=== PATIENT | male | born 1945 | race Caucasian/White ===

== ENCOUNTER → 2017-07-25 | Outpatient (REF) ==
[~2017-07-25] MED LIST: AMOXICILLIN 50500 MG PO; ASPIRIN 32325 MG/TAB PO; BIAXIN 500MG T500 MG PO; FLEXERIL 1010 MG/TAB PO; FOLIC ACID 40400 MCG PO; FORTAMET1000 MG PO; GLIPIZIDE10 MG PO; GLUCOTROL5 MG PO; IRON325 M1 PO; LEVEMIR100 U/ML SC; MULTIVITAMIN1 CTB PO; MVI PO; NIFEREX-150 501 CA1 PO; NITROSTAT0.4 MG/TAB SL; NORCO 325 MG-51 TAB PO; PLAVIX 75MG TAB75 MG PO; PRILOSEC 20MG20 MG PO; REGLAN 10MG10 MG/TAB PO; SLOW FE45 MG PO; TOPROL XL 25MG25 MG PO; VITAMIN C500 MG PO; ZESTRIL5 MG PO; ZOCOR40 MG PO; [UNRECOGNIZED DRUG - OTHER] PO
[2017-07-25 10:52] LABS: ALBUMIN 2.6 gm/dL (3.5-5.0); CALCIUM 8.4 mg/dL (8.4-10.2); CREATININE, serum 1.35 mg/dL (0.66-1.25); POTASSIUM 3.6 mmol/L (3.4-5.0); TOTAL PROTEIN 5.5 gm/dL (6.4-8.2)
[2017-07-25 10:58] LABS: HEMATOCRIT 37.9 % (42.0-52.0); HEMOGLOBIN 14.5 g/dl (13.5-18.0); MEAN CELL VOLUME 84 fl (80.0-100.0); MEAN CORPUSCULAR HEMOGLOBIN 32 pg (27.0-31.0); MEAN CORPUSCULAR HGB CONC 38 g/dl (33.0-37.0); MEAN PLATELET VOLUME 11.8 fl (7.4-10.4); PLATELET COUNT 166 K/mm3 (130-400); REDCELL DISTRIBUTION WIDTH-CV 12.5 % (11.5-14.5)
[2017-07-25 11:59] LABS: BAND 19 % (0-10); EOSINOPHIL 1 % (0-4); LYMPHOCYTE 17 % (20.0-51.0); MYELOCYTE 3 % (0-0); NEUTROPHILS 56 % (42.0-75.2); PLATELET ESTIMATE NORMAL (NORMAL); TARGET CELLS 2+
[2017-07-28 08:45] LABS: PATHOLOGY DIFF REVIEW OK +
== END ==
LOC: ZCOL.LAB 10:40
PROVIDERS: Internal Medicine
DX: J18.1 Lobar pneumonia, unspecified organism (principal)

== ENCOUNTER 2017-08-04 17:14 | Inpatient (IN) | payer BC ==
[~2017-08-04] VITALS: Ht 177.8 cm; Wt 70.7 kg
[~2017-08-04 17:14] MED LIST changes: -ALMACONE 360 M360 ML PO; -ATROVENT INHALE14 GM IH; -DULCOLAX S10 MG/SUPP RC; -FERROUS SU325 MG/TAB PO; -IMODIUM 2MG CAPS2 MG PO; -LEVAQUIN 750MG750 M1 PO; -MILK OF MA400 MG/52 PO; -NOVOLOG FLEX100 U/ML SQ; -TYLENOL 325MG325 MG PO; -ZOSYN 4 GM-0.51 PD1 IV
[2017-08-04 17:28] VITALS: BP 140/57; PULSE 87; TEMP 98.2
[2017-08-04] MEDS ORDERED: FERROUS SU325 MG/TAB PO (17:32)
[2017-08-04] MEDS ORDERED: LEVAQUIN 750MG750 M1 PO (17:35)
[2017-08-04] MEDS ORDERED: ATROVENT INHALE14 GM IH (17:38)
[2017-08-04] MEDS ORDERED: NOVOLOG FLEX100 U/ML SQ ×2 (17:39→17:42)
[2017-08-04 20:03] VITALS: BP 121/51; PULSE 96; TEMP 101.1
[2017-08-04 23:40] VITALS: BP 133/52; PULSE 93; TEMP 99.4
[2017-08-05 04:35] VITALS: BP 117/51; PULSE 90; TEMP 98.9
[2017-08-05 07:00] LABS: CALCIUM 8.3 mg/dL (8.4-10.2); CREATININE, serum 1.41 mg/dL (0.66-1.25); POTASSIUM 4.1 mmol/L (3.4-5.0)
[2017-08-05 07:15] LABS: TROPONIN-I 0.284 ng/mL (0.000-0.034)
[2017-08-05 07:30] LABS: BASO # 0.1 (0.0-0.2); BASO % 0.4 % (0.0-2.0); EOS % 0.1 % (0-4.0); GRAN # 11.6 (1.4-6.5); GRAN % 85.3 % (42.2-75.2); LYMPH % 7.2 % (20.0-51.0); MEAN CELL VOLUME 90 fl (80.0-100.0); MEAN CORPUSCULAR HGB CONC 36 g/dl (33.0-37.0); MONO # 0.8 (0.1-0.6); MONO % 6.1 % (1.7-9.3); RED BLOOD COUNT 2.93 M/mm3 (4.20-5.60); REDCELL DISTRIBUTION WIDTH-CV 14.6 % (11.5-14.5)
[2017-08-05 07:31] LABS: HEMATOCRIT 26.5 % (42.0-52.0); HEMOGLOBIN 9.4 g/dl (13.5-18.0); MEAN CORPUSCULAR HEMOGLOBIN 32 pg (27.0-31.0); PLATELET COUNT 425 K/mm3 (130-400)
[2017-08-05 07:32] VITALS: BP 135/57; PULSE 98; TEMP 98.1
[2017-08-05 09:39] LABS: COLLECTION METHOD CLEAN CATCH
[2017-08-05 10:12] LABS: URINE APPEARANCE Clear; URINE COLOR Yellow
[2017-08-05 10:13] LABS: PH 5 (5-8); SQUAMOUS EPITHELIAL 0-2 /hpf; URINE BILIRUBIN Negative (NEGATIVE); URINE BLOOD Negative (NEGATIVE); URINE GLUCOSE 1+ (NEGATIVE); URINE KETONE Negative (NEGATIVE); URINE LEUKOCYTE ESTERASE Negative (NEGATIVE); URINE NITRATE Negative (NEGATIVE); URINE PROTEIN(semi-quant) Negative (NEGATIVE); URINE RBC 0-2 /hpf; URINE UROBILINOGEN Negative (NEGATIVE)
[2017-08-05 10:14] LABS: URINE BACTERIA None Seen /hpf
[2017-08-05 11:11] VITALS: BP 106/51; PULSE 102; TEMP 99
[2017-08-05 11:31] LABS: INR 1.2 (0.8-3.0); PROTHROMBIN TIME 13.7 SECONDS (9.7-12.8)
[2017-08-05 14:26] LABS: GLUCOSE,PLEURAL FLUID 364 mg/dL; TOTAL PROTEIN,PLEURAL FLUID 3.2 gm/dL
[2017-08-05 14:39] LABS: PLEURAL FLUID RBC 5000 /mm3 (0-0); PLEURAL FLUID WBC 18131 /mm3
[2017-08-05 14:56] LABS: PLEURAL FLUID APPEARANCE HAZY; PLEURAL FLUID COLOR YELLOW
[2017-08-05 16:47] VITALS: BP 118/57; PULSE 95; TEMP 98.4
[2017-08-05 19:45] VITALS: BP 126/66; PULSE 97; TEMP 98.4
[2017-08-06] VITALS (368 sets, daily range): BP systolic 96–167; BP diastolic 44–70; PULSE 96–128; TEMP 97.5–100.3; O2SAT 94–100
[2017-08-06 07:00] LABS: MEAN CELL VOLUME 90 fl (80.0-100.0); MEAN CORPUSCULAR HGB CONC 35 g/dl (33.0-37.0); PLATELET COUNT 445 K/mm3 (130-400); RED BLOOD COUNT 2.64 M/mm3 (4.20-5.60); REDCELL DISTRIBUTION WIDTH-CV 14.5 % (11.5-14.5)
[2017-08-06 07:03] LABS: HEMATOCRIT 23.8 % (42.0-52.0); HEMOGLOBIN 8.3 g/dl (13.5-18.0); MEAN CORPUSCULAR HEMOGLOBIN 31 pg (27.0-31.0)
[2017-08-06 07:04] LABS: CALCIUM 8.3 mg/dL (8.4-10.2); CREATININE, serum 1.38 mg/dL (0.66-1.25); POTASSIUM 3.6 mmol/L (3.4-5.0)
[2017-08-06 07:25] LABS: TROPONIN-I 0.166 ng/mL (0.000-0.034)
[2017-08-06 07:53] LABS: BAND 15 % (0-10); EOSINOPHIL 1 % (0-4); LYMPHOCYTE 7 % (20.0-51.0); NEUTROPHILS 76 % (42.0-75.2)
[2017-08-06 07:54] LABS: PLATELET ESTIMATE INCREASED (NORMAL)
[2017-08-06 14:07] LABS: ARTERIAL BLOOD GAS BASE EXCESS -2.4 (-2-2); ARTERIAL BLOOD GAS HCO3 22.7 meq/L (22-26); ARTERIAL BLOOD GAS PCO2 40.7 mmHg (35-45); ARTERIAL BLOOD GAS pH 7.37 (7.35-7.45)
[2017-08-06 14:09] LABS: ARTERIAL BLOOD GAS PO2 49.4 mmHg (80-100)
[2017-08-06 15:20] LABS: ARTERIAL BLD GAS O2 SATURATION 95.6 % (92-100); ARTERIAL BLD GAS TCO2 CT 25.8; ARTERIAL BLOOD GAS BASE EXCESS 0.5 (-2-2); ARTERIAL BLOOD GAS HCO3 24.6 meq/L (22-26); ARTERIAL BLOOD GAS PCO2 37.1 mmHg (35-45); ARTERIAL BLOOD GAS PO2 85.4 mmHg (80-100); ARTERIAL BLOOD GAS pH 7.44 (7.35-7.45)
[2017-08-06 17:52] LABS: ARTERIAL BLD GAS O2 SATURATION 98.5 % (92-100); ARTERIAL BLD GAS TCO2 CT 23.5; ARTERIAL BLOOD GAS BASE EXCESS -0.5 (-2-2); ARTERIAL BLOOD GAS HCO3 22.5 meq/L (22-26); ARTERIAL BLOOD GAS PCO2 31.4 mmHg (35-45); ARTERIAL BLOOD GAS pH 7.47 (7.35-7.45)
[2017-08-06 17:53] LABS: ARTERIAL BLOOD GAS PO2 215.5 mmHg (80-100)
[2017-08-07] VITALS (633 sets, daily range): BP systolic 94–182; BP diastolic 31–78; PULSE 72–104; TEMP 97.8–99.6; O2SAT 92–100
[2017-08-07] MEDS ORDERED: DULCOLAX S10 MG/SUPP RC (01:17)
[2017-08-07] MEDS ORDERED: IMODIUM 2MG CAPS2 MG PO (01:25)
[2017-08-07] MEDS ORDERED: LEVAQUIN 750MG750 M1 PO (01:28)
[2017-08-07] MEDS ORDERED: MILK OF MA400 MG/52 PO (01:31)
[2017-08-07] MEDS ORDERED: ALMACONE 360 M360 ML PO (01:33)
[2017-08-07] MEDS ORDERED: NOVOLOG FLEX100 U/ML SQ (01:37)
[2017-08-07] MEDS ORDERED: TYLENOL 325MG325 MG PO (01:38)
[2017-08-07] MEDS ORDERED: ZOSYN 4 GM-0.51 PD1 IV ×2 (01:41→01:56)
[2017-08-07 05:30] LABS: ARTERIAL BLD GAS O2 SATURATION 95.6 % (92-100); ARTERIAL BLD GAS TCO2 CT 22.4; ARTERIAL BLOOD GAS BASE EXCESS -1.9 (-2-2); ARTERIAL BLOOD GAS HCO3 21.5 meq/L (22-26); ARTERIAL BLOOD GAS PCO2 30.6 mmHg (35-45); ARTERIAL BLOOD GAS PO2 80.6 mmHg (80-100); ARTERIAL BLOOD GAS pH 7.46 (7.35-7.45)
[2017-08-07 07:22] LABS: MEAN CELL VOLUME 92 fl (80.0-100.0); MEAN CORPUSCULAR HGB CONC 35 g/dl (33.0-37.0); PLATELET COUNT 444 K/mm3 (130-400); RED BLOOD COUNT 2.48 M/mm3 (4.20-5.60); REDCELL DISTRIBUTION WIDTH-CV 14.7 % (11.5-14.5)
[2017-08-07 07:24] LABS: ALBUMIN 2.1 gm/dL (3.5-5.0); BILIRUBIN,TOTAL 0.3 mg/dL (0.0-1.0); CALCIUM 7.5 mg/dL (8.4-10.2); CREATININE, serum 1.41 mg/dL (0.66-1.25); MAGNESIUM 1.6 mg/dL (1.6-2.3); PHOSPHOROUS 4.5 mg/dL (2.5-4.5); POTASSIUM 3.9 mmol/L (3.4-5.0); TOTAL PROTEIN 5.4 gm/dL (6.4-8.2)
[2017-08-07 07:25] LABS: HEMATOCRIT 22.9 % (42.0-52.0); HEMOGLOBIN 7.9 g/dl (13.5-18.0); MEAN CORPUSCULAR HEMOGLOBIN 32 pg (27.0-31.0)
[2017-08-07 08:41] LABS: BAND 27 % (0-10); LYMPHOCYTE 5 % (20.0-51.0); NEUTROPHILS 67 % (42.0-75.2); PLATELET ESTIMATE NORMAL (NORMAL)
[2017-08-08] VITALS: BP 101/52; PULSE 96; TEMP 100.7
[2017-08-08 04:00] VITALS: BP 127/63; PULSE 96; TEMP 100.5
[2017-08-08 05:22] LABS: BASO % 0.1 % (0.0-2.0); GRAN # 11.5 (1.4-6.5); GRAN % 92.9 % (42.2-75.2); LYMPH # 0.6 (1.2-3.4); LYMPH % 4.5 % (20.0-51.0); MEAN CELL VOLUME 91 fl (80.0-100.0); MEAN CORPUSCULAR HGB CONC 35 g/dl (33.0-37.0); MONO # 0.2 (0.1-0.6); MONO % 1.8 % (1.7-9.3); PLATELET COUNT 426 K/mm3 (130-400); RED BLOOD COUNT 2.44 M/mm3 (4.20-5.60); REDCELL DISTRIBUTION WIDTH-CV 15.1 % (11.5-14.5)
[2017-08-08 05:24] LABS: HEMATOCRIT 22.3 % (42.0-52.0); HEMOGLOBIN 7.7 g/dl (13.5-18.0); MEAN CORPUSCULAR HEMOGLOBIN 32 pg (27.0-31.0)
[2017-08-08 05:26] LABS: ARTERIAL BLD GAS TCO2 CT 24.3; ARTERIAL BLOOD GAS BASE EXCESS 0.3 (-2-2); ARTERIAL BLOOD GAS HCO3 23.4 meq/L (22-26); ARTERIAL BLOOD GAS PCO2 31.6 mmHg (35-45); ARTERIAL BLOOD GAS pH 7.49 (7.35-7.45)
[2017-08-08 05:33] LABS: ALBUMIN 2.1 gm/dL (3.5-5.0); BILIRUBIN,TOTAL 0.1 mg/dL (0.0-1.0); CALCIUM 7.4 mg/dL (8.4-10.2); CREATININE, serum 1.57 mg/dL (0.66-1.25); MAGNESIUM 1.9 mg/dL (1.6-2.3); PHOSPHOROUS 3.7 mg/dL (2.5-4.5); POTASSIUM 3.6 mmol/L (3.4-5.0); TOTAL PROTEIN 5.3 gm/dL (6.4-8.2)
[2017-08-08 08:00] VITALS: BP 131/67; PULSE 95; TEMP 99.3
[2017-08-08 12:00] VITALS: BP 123/68; PULSE 87; TEMP 99.3
[2017-08-08 16:00] VITALS: BP 133/71; PULSE 95; TEMP 99.3
[2017-08-08 20:00] VITALS: BP 130/64; PULSE 90; TEMP 98.7
[2017-08-08 21:34] LABS: QUANTIFERON TB GOLD Indeterminate (Negative)
[2017-08-08 23:38] LABS: C-ANCA 31 U/mL (0-99)
[2017-08-09] VITALS (7 sets, daily range): BP systolic 126–161; BP diastolic 62–79; PULSE 89–98; TEMP 98.1–98.9
[2017-08-09 04:44] LABS: ARTERIAL BLD GAS O2 SATURATION 96.1 % (92-100); ARTERIAL BLOOD GAS BASE EXCESS 0.1 (-2-2); ARTERIAL BLOOD GAS PCO2 30.9 mmHg (35-45); ARTERIAL BLOOD GAS PO2 84.4 mmHg (80-100); ARTERIAL BLOOD GAS pH 7.49 (7.35-7.45)
[2017-08-09 05:35] LABS: ALANINE AMINOTRANSFERASE 189 U/L (21-72); ALBUMIN 2.2 gm/dL (3.5-5.0); ALKALINE PHOSPHATASE 136 U/L (50-136); ANION GAP 7 mmol/L (7-16); AST,SGOT 508 U/L (15-37); BILIRUBIN,TOTAL < 0.1 mg/dL (0.0-1.0); BLOOD UREA NITROGEN 44 mg/dL (9-20); CALCIUM 7.5 mg/dL (8.4-10.2); CARBON DIOXIDE 23 mmol/L (22-30); CHLORIDE 118 mmol/L (98-107); CREATININE, serum 1.57 mg/dL (0.66-1.25); GLUCOSE 156 mg/dL (74-106); MAGNESIUM 2.2 mg/dL (1.6-2.3); PHOSPHOROUS 2.7 mg/dL (2.5-4.5); POTASSIUM 3.6 mmol/L (3.4-5.0); SODIUM 148 mmol/L (137-145); TOTAL PROTEIN 5.4 gm/dL (6.4-8.2)
[2017-08-09 07:51] LABS: MEAN CELL VOLUME 95 fl (80.0-100.0); MEAN CORPUSCULAR HGB CONC 34 g/dl (33.0-37.0); MEAN PLATELET VOLUME 10.5 fl (7.4-10.4); PLATELET COUNT 455 K/mm3 (130-400); RED BLOOD COUNT 2.54 M/mm3 (4.20-5.60); REDCELL DISTRIBUTION WIDTH-CV 15.7 % (11.5-14.5)
[2017-08-09 07:52] LABS: HEMOGLOBIN 8.1 g/dl (13.5-18.0); MEAN CORPUSCULAR HEMOGLOBIN 32 pg (27.0-31.0)
[2017-08-09 08:10] LABS: BAND 16 % (0-10); LYMPHOCYTE 3 % (20.0-51.0); NEUTROPHILS 81 % (42.0-75.2); PLATELET ESTIMATE INCREASED (NORMAL)
[2017-08-09 12:20] LABS: TOTAL IRON BINDING CAPACITY 135 ug/dL (261-462)
[2017-08-09 12:44] LABS: IRON,SERUM 60 ug/dL (35-150)
[2017-08-09 13:19] LABS: FERRITIN 984 ng/mL (18-464)
[2017-08-09 17:06] LABS: FOLATE (FOLIC ACID) 10.5 ng/mL (7.0-31.4)
[2017-08-10 04:02] VITALS: BP 118/56; PULSE 82; TEMP 98.6
[2017-08-10 06:10] LABS: MEAN CELL VOLUME 96 fl (80.0-100.0); MEAN CORPUSCULAR HGB CONC 33 g/dl (33.0-37.0); MEAN PLATELET VOLUME 10.2 fl (7.4-10.4); PLATELET COUNT 391 K/mm3 (130-400); RED BLOOD COUNT 2.51 M/mm3 (4.20-5.60); REDCELL DISTRIBUTION WIDTH-CV 15.6 % (11.5-14.5)
[2017-08-10 06:12] LABS: MEAN CORPUSCULAR HEMOGLOBIN 32 pg (27.0-31.0)
[2017-08-10 06:18] LABS: ALANINE AMINOTRANSFERASE 214 U/L (21-72); ALBUMIN 2.1 gm/dL (3.5-5.0); ALKALINE PHOSPHATASE 128 U/L (50-136); ANION GAP 6 mmol/L (7-16); AST,SGOT 247 U/L (15-37); BILIRUBIN,TOTAL < 0.1 mg/dL (0.0-1.0); BLOOD UREA NITROGEN 45 mg/dL (9-20); CALCIUM 7.4 mg/dL (8.4-10.2); CARBON DIOXIDE 25 mmol/L (22-30); CHLORIDE 118 mmol/L (98-107); CREATININE, serum 1.44 mg/dL (0.66-1.25); GLUCOSE 141 mg/dL (74-106); POTASSIUM 3.6 mmol/L (3.4-5.0); SODIUM 150 mmol/L (137-145); TOTAL PROTEIN 5.3 gm/dL (6.4-8.2)
[2017-08-10 06:33] LABS: BAND 7 % (0-10); LYMPHOCYTE 5 % (20.0-51.0); NEUTROPHILS 87 % (42.0-75.2); PLATELET ESTIMATE NORMAL (NORMAL)
[2017-08-10 07:50] VITALS: BP 146/71; PULSE 86; TEMP 98.1
== END 2017-08-10 09:27 | disposition short-term general hospital (02) | DRG 208 ==
LOC: MEDICAL 17:14 → ICU 08-06 14:40
PROVIDERS: Family Medicine; Internal Medicine; Internal Medicine Critical Care Medicine; Internal Medicine Infectious Disease; Nurse Practitioner; Physician Assistant
PROC: 0W9B3ZZ Drainage of Left Pleural Cavity, Percutaneous Approach (ICD-10-PCS; principal; 2017-08-06)
PROC: 5A1945Z Respiratory Ventilation, 24-96 Consecutive Hours (ICD-10-PCS; 2017-08-06)
PROC: 0BH17EZ Insertion of Endotracheal Airway into Trachea, Via Natural or Artificial Opening (ICD-10-PCS; 2017-08-06)
PROC: 0B9B8ZX Drainage of Left Lower Lobe Bronchus, Via Natural or Artificial Opening Endoscopic, Diagnostic (ICD-10-PCS; 2017-08-06)
PROC: 0B968ZX Drainage of Right Lower Lobe Bronchus, Via Natural or Artificial Opening Endoscopic, Diagnostic (ICD-10-PCS; 2017-08-06)
PROC: 0W9B00Z Drainage of Left Pleural Cavity with Drainage Device, Open Approach (ICD-10-PCS; 2017-08-07)
DX: J85.1 Abscess of lung with pneumonia (principal); J96.01 Acute respiratory failure with hypoxia; I21.A1 Myocardial infarction type 2; J90 Pleural effusion, not elsewhere classified; J93.83 Other pneumothorax; E87.0 Hyperosmolality and hypernatremia; E87.6 Hypokalemia; I12.9 Hypertensive chronic kidney disease with stage 1 through stage 4 chronic kidney disease, or unspecified chronic kidney disease; E11.22 Type 2 diabetes mellitus with diabetic chronic kidney disease; N18.9 Chronic kidney disease, unspecified; I48.0 Paroxysmal atrial fibrillation; Z87.891 Personal history of nicotine dependence; Z79.4 Long term (current) use of insulin; E11.65 Type 2 diabetes mellitus with hyperglycemia; E11.51 Type 2 diabetes mellitus with diabetic peripheral angiopathy without gangrene; E11.43 Type 2 diabetes mellitus with diabetic autonomic (poly)neuropathy; K31.84 Gastroparesis; B96.89 Other specified bacterial agents as the cause of diseases classified elsewhere
CPT/HCPCS: 99222; 99223-AI; 99233-AI; 99239; C1751; C1894; J0330; J0456; J0692; J1644; J1815; J1940; J2543; J2704; J2920; J2930; J3010; J3370; J7030; J7050; J7060

== ENCOUNTER → 2017-08-04 | Outpatient (REF) ==
[~2017-08-04] MED LIST changes: +ALMACONE 360 M360 ML PO; +ATROVENT INHALE14 GM IH; +DULCOLAX S10 MG/SUPP RC; +FERROUS SU325 MG/TAB PO; +IMODIUM 2MG CAPS2 MG PO; +LEVAQUIN 750MG750 M1 PO; +MILK OF MA400 MG/52 PO; +NOVOLOG FLEX100 U/ML SQ; +TYLENOL 325MG325 MG PO; +ZOSYN 4 GM-0.51 PD1 IV
[2017-08-04 12:18] LABS: BASO % 0.2 % (0.0-2.0); EOS % 0.1 % (0-4.0); GRAN # 14.9 (1.4-6.5); GRAN % 86.4 % (42.2-75.2); LYMPH # 1.3 (1.2-3.4); LYMPH % 7.5 % (20.0-51.0); MEAN CELL VOLUME 90 fl (80.0-100.0); MEAN CORPUSCULAR HGB CONC 36 g/dl (33.0-37.0); MEAN PLATELET VOLUME 10.2 fl (7.4-10.4); MONO # 0.9 (0.1-0.6); PLATELET COUNT 556 K/mm3 (130-400); RED BLOOD COUNT 3.46 M/mm3 (4.20-5.60); REDCELL DISTRIBUTION WIDTH-CV 14.5 % (11.5-14.5)
[2017-08-04 12:21] LABS: CALCIUM 9.1 mg/dL (8.4-10.2); CREATININE, serum 1.51 mg/dL (0.66-1.25); POTASSIUM 3.5 mmol/L (3.4-5.0)
[2017-08-04 12:24] LABS: HEMATOCRIT 31.1 % (42.0-52.0); HEMOGLOBIN 11.1 g/dl (13.5-18.0); MEAN CORPUSCULAR HEMOGLOBIN 32 pg (27.0-31.0)
== END ==
LOC: ZCOL.LAB 11:55
PROVIDERS: Nurse Practitioner Family
DX: N17.9 Acute kidney failure, unspecified (principal); J15.211 Pneumonia due to Methicillin susceptible Staphylococcus aureus

== ENCOUNTER → 2017-08-25 | Outpatient (REF) ==
[~2017-08-25] MED LIST changes: +ALMACONE 360 M360 ML PO; +ATROVENT INHALE14 GM IH; +DULCOLAX S10 MG/SUPP RC; +FERROUS SU325 MG/TAB PO; +IMODIUM 2MG CAPS2 MG PO; +LEVAQUIN 750MG750 M1 PO; +MILK OF MA400 MG/52 PO; +NOVOLOG FLEX100 U/ML SQ; +TYLENOL 325MG325 MG PO; +ZOSYN 4 GM-0.51 PD1 IV
[2017-08-25 12:03] LABS: BASO # 0.1 (0.0-0.2); BASO % 0.6 % (0.0-2.0); EOS # 0.1 (0.0-0.7); EOS % 1.1 % (0-4.0); GRAN # 5.5 (1.4-6.5); GRAN % 70.7 % (42.2-75.2); LYMPH # 1.7 (1.2-3.4); LYMPH % 21.2 % (20.0-51.0); MEAN CELL VOLUME 96 fl (80.0-100.0); MEAN CORPUSCULAR HGB CONC 33 g/dl (33.0-37.0); MEAN PLATELET VOLUME 10.2 fl (7.4-10.4); MONO # 0.5 (0.1-0.6); PLATELET COUNT 308 K/mm3 (130-400); RED BLOOD COUNT 2.71 M/mm3 (4.20-5.60); REDCELL DISTRIBUTION WIDTH-CV 17.7 % (11.5-14.5)
[2017-08-25 12:04] LABS: HEMOGLOBIN 8.6 g/dl (13.5-18.0); MEAN CORPUSCULAR HEMOGLOBIN 32 pg (27.0-31.0)
[2017-08-25 12:17] LABS: ALBUMIN 2.9 gm/dL (3.5-5.0); BILIRUBIN,TOTAL 0.2 mg/dL (0.0-1.0); CALCIUM 8.4 mg/dL (8.4-10.2); CREATININE, serum 1.19 mg/dL (0.66-1.25); POTASSIUM 3.4 mmol/L (3.4-5.0); TOTAL PROTEIN 6.7 gm/dL (6.4-8.2)
== END ==
LOC: ZCOL.LAB 11:56
PROVIDERS: Internal Medicine
DX: J85.0 Gangrene and necrosis of lung (principal); D64.9 Anemia, unspecified; E87.0 Hyperosmolality and hypernatremia

== ENCOUNTER → 2017-09-26 | Outpatient (CLI) | payer BC | LOC: ZCOL.LAB 11:42 | DX: J47.9 Bronchiectasis, uncomplicated (principal) ==

== ENCOUNTER → 2017-11-05 | Outpatient (REF) ==
[2017-11-05 14:43] LABS: BASO % 0.5 % (0.0-2.0); EOS # 0.1 (0.0-0.7); EOS % 1.5 % (0-4.0); HEMATOCRIT 39.6 % (42.0-52.0); HEMOGLOBIN 14.3 g/dl (13.5-18.0); LYMPH # 1.5 (1.2-3.4); LYMPH % 25.2 % (20.0-51.0); MEAN CELL VOLUME 86 fl (80.0-100.0); MEAN CORPUSCULAR HEMOGLOBIN 31 pg (27.0-31.0); MEAN CORPUSCULAR HGB CONC 36 g/dl (33.0-37.0); MEAN PLATELET VOLUME 11.3 fl (7.4-10.4); MONO # 0.4 (0.1-0.6); MONO % 6.5 % (1.7-9.3); PLATELET COUNT 163 K/mm3 (130-400); RED BLOOD COUNT 4.59 M/mm3 (4.20-5.60)
[2017-11-05 14:49] LABS: ALBUMIN 3.6 gm/dL (3.5-5.0); BILIRUBIN,TOTAL 0.5 mg/dL (0.0-1.0); CALCIUM 9.8 mg/dL (8.4-10.2); CREATININE, serum 1.37 mg/dL (0.66-1.25); POTASSIUM 5.1 mmol/L (3.4-5.0); TOTAL PROTEIN 6.8 gm/dL (6.4-8.2)
== END ==
LOC: ZCOL.LAB 14:39
PROVIDERS: Internal Medicine
DX: Z01.89 Encounter for other specified special examinations (principal)

== ENCOUNTER → 2017-11-05 | Outpatient (CLI) | payer BC | LOC: COL.CARD 15:26 | DX: R00.2 Palpitations (principal) ==